=== PATIENT | female | born 1960 | race Caucasian/White ===

== ENCOUNTER 2016-09-07 15:06 | Emergency (ER) | payer BC ==
[~2016-09-07] VITALS: Ht 154.9 cm; Wt 68.9 kg
[~2016-09-07 15:06] MED LIST: HYDROCODONE BIT1 T11 PO; VITAMIN D-32000 UNIT PO
[2016-09-07] MEDS ORDERED: TESSALON PERLE100 M1 PO (16:25)
[2016-09-07] MEDS ORDERED: HYCODAN/HYDROMET5 ML PO (16:25)
== END 2016-09-07 16:36 | disposition home or self-care (01) ==
LOC: ED 15:06
DX: B34.9 Viral infection, unspecified (principal); Z98.51 Tubal ligation status; Z98.890 Other specified postprocedural states; Z79.899 Other long term (current) drug therapy; Z88.6 Allergy status to analgesic agent; Z88.8 Allergy status to other drugs, medicaments and biological substances; Z88.1 Allergy status to other antibiotic agents

== ENCOUNTER 2016-09-15 07:46 | Inpatient (IN) | payer BC ==
[~2016-09-15] VITALS: Ht 154.9 cm; Wt 69.2 kg
--- NOTE | ~2016-09-15 | CON ---
[place], [place] REPORT OF CONSULTATION NAME: DOTTIE ANDERS UNIT #: [id number] ROOM: 406 [facility] [birth year] DOS: 09/16/2016 CARDIOLOGY CONSULTATION HISTORY OF PRESENT ILLNESS: The patient is a 55-year-old female, came in with history of unsteady, did not feel well and a possible non-ST elevation myocardial infarction. Troponin was 0.1 and with normal GFR, so patient also was unsteady, did not feel well and the primary care is Dr. Barkley. The patient has had near syncope, nausea, and vomiting. She felt like the room was spinning when she got up yesterday morning, has some dizziness. The patient had a similar episode about 15 years ago and a history of mitral valve prolapse syndrome. No chest pain. No syncope. No significant dyspnea. PAST SURGICAL HISTORY: History of section, cholecystectomy. PHYSICAL EXAMINATION: VITAL SIGNS: Heart rate is 60, afebrile, blood pressure 144/90, and respiratory rate is 16. GENERAL: Still alert, not in any acute distress. NEUROLOGIC: Mental status good. No focal neurological deficit noted. SKIN: Warm, not diaphoretic. No cyanosis NECK: No jugular venous distention. LUNGS: Clear, no rales heard. HEART: S1, S2. No gallops. ABDOMEN: Soft. Color is good. The patient is on Reglan and Antivert. RECTAL AND GENITAL: Deferred. The patient had a cardiac catheterization. There is no critical coronary artery disease. LABORATORY DATA: Hemoglobin 12.9, WBC count is normal, and GFR is good. Creatinine 0.69, but the troponin initially 0.9 and subsequently 0.102. IMAGING STUDIES: CT scan of the head without contrast was done, no acute intracranial abnormalities noted. A chest x-ray on admission, mild perihilar inflammatory changes, no acute changes noted. No pneumonia, no congestive heart failure. DIAGNOSES: Dizziness, non-ST elevation myocardial infarction may be of consideration. Workup is in progress. Lexiscan Cardiolite is done and pending the scanning. [place], [place] REPORT OF CONSULTATION NAME: DOTTIE ANDERS UNIT #: [id number] ROOM: 406 DOCTOR: [facility]CE [facility] BIRTHDATE: [birth year] MIGUEL REYES MD CM:CONSTR:REPORT OF CONSULTATION 8 09/19/16 0729 interface TA GAO DO
--- NOTE | ~2016-09-15 | ST ---
[place], [place] EXERCISE STRESS TEST REPORT NAME: DOTTIE ANDERS UNIT #: [id number] ROOM: 406 DOCTOR: AMY PEARCE [facility] BIRTHDATE: [birth year] DOS: 09/16/2016 The patient came in with abnormal blood test for cardiovascular abnormality and the angina. The patient received Lexiscan 0.4 mg over 10 seconds. No conclusive electrocardiographic changes noted. Heart rate is 104 and no complications noted. Isotope was injected. Myocardial perfusion scan to follow. MIGUEL REYES MD CM:STRESS:EXERCISE STRESS TEST REPORT [id number] [facility]
[~2016-09-15 07:46] MED LIST changes: +HYCODAN/HYDROMET5 ML PO; +TESSALON PERLE100 M1 PO
[2016-09-15 07:50] VITALS: BP 162/95
[2016-09-15 08:16] LABS: BASO % 0.4 % (0.0-1.0); EOS % 0.7 % (1.0-4.0); HEMATOCRIT 41.1 % (37.0-47.0); HEMOGLOBIN 13.6 g/dl (12.0-16.0); IG # 0.1 10*3/uL (0.0-0.1); LYMPH # 2.1 10*3/uL (1.3-4.4); LYMPH % 37.8 % (27.0-41.0); MEAN CELL VOLUME 92.8 fl (81.0-99.0); MEAN CORPUSCULAR HGB 30.7 pg (27.0-31.0); MEAN CORPUSCULAR HGB CONC 33.1 g/dl (33.0-37.0); MEAN PLATELET VOLUME 9.3 fl (9.6-12.3); MONO # 0.6 10*3/uL (0.1-1.0); MONO % 10.9 % (3.0-9.0); NEUT # 2.8 10*3/uL (2.3-7.9); NEUT % 49.3 % (47.0-73.0); PLATELET COUNT AUTOMATED 331 10*3/uL (130-400); RED BLOOD COUNT 4.43 10*6/uL (4.10-5.10); RED CELL DISTRI WIDTH 12.4 % (0-14.5); WHITE BLOOD COUNT 5.6 10*3/uL (4.8-10.8)
[2016-09-15 08:25] LABS: PROTHROMBIN TIME 10.5 SECONDS (9.0-12.4)
[2016-09-15 08:31] LABS: ALBUMIN 3.5 gm/dl (3.1-4.5); ALKALINE PHOSPHATASE 96 U/L (45-117); BILIRUBIN, TOTAL 0.7 mg/dl (0.2-1.0); BUN 13 mg/dl (7-24); CARBON DIOXIDE 27 mmol/L (21-32); CHLORIDE 111 mmol/L (98-107); CPK 96 U/L (26-192); EST GLOM FILT AFRICAN AMERICAN > 60 ml/min; GLUCOSE 102 mg/dL (65-99); MAGNESIUM 1.8 mg/dL (1.5-2.1); POTASSIUM 3.7 mmol/L (3.5-5.1); SGOT/AST 51 IU/L (3-35); SGPT/ALT 96 U/L (12-78); SODIUM 143 mmol/L (136-145)
[2016-09-15 08:32] LABS: C-REACTIVE PROTEIN < 0.29 MG/DL (0-0.3); CKMB < 0.5 ng/ml (0.5-3.6)
[2016-09-15 08:33] LABS: BILIRUBIN NEGATIVE (NEGATIVE); BLOOD TRACE-INTACT (NEGATIVE); CLARITY CLEAR (CLEAR); COLOR YELLOW (YELLOW); GLUCOSE NEGATIVE (NEGATIVE); KETONE NEGATIVE (NEGATIVE); LEUKO ESTERASE 1+ (NEGATIVE); NITRITE NEGATIVE (NEGATIVE); PH 7.5 (5.0-9.0); PROTEIN NEGATIVE (NEGATIVE); UROBILINOGEN 0.2 E.U./dl (0.2-1.0)
[2016-09-15 08:35] LABS: TROPONIN I 0.089 ng/ml (<0.045)
[2016-09-15 08:44] LABS: RBC 0-2 rbc/hpf (0-2); URINE REFLEX COMMENT YES (NO)
[2016-09-15 10:42] VITALS: BP 153/77
[2016-09-15 11:15] VITALS: BP 120/64
[2016-09-15 16:00] VITALS: BP 128/70
[2016-09-15 20:00] VITALS: BP 144/90
[2016-09-16] VITALS: BP 102/69
[2016-09-16 06:13] LABS: BASO % 0.3 % (0.0-1.0); EOS # 0.1 10*3/uL (0.0-0.4); HEMATOCRIT 39.9 % (37.0-47.0); HEMOGLOBIN 12.9 g/dl (12.0-16.0); LYMPH # 2.5 10*3/uL (1.3-4.4); LYMPH % 42.3 % (27.0-41.0); MEAN CORPUSCULAR HGB 30.1 pg (27.0-31.0); MEAN CORPUSCULAR HGB CONC 32.3 g/dl (33.0-37.0); MEAN PLATELET VOLUME 9.5 fl (9.6-12.3); MONO # 0.7 10*3/uL (0.1-1.0); NEUT # 2.6 10*3/uL (2.3-7.9); NEUT % 43.7 % (47.0-73.0); PLATELET COUNT AUTOMATED 383 10*3/uL (130-400); RED BLOOD COUNT 4.29 10*6/uL (4.10-5.10); RED CELL DISTRI WIDTH 12.6 % (0-14.5)
[2016-09-16 06:21] LABS: ALBUMIN 3.4 gm/dl (3.1-4.5); BILIRUBIN, TOTAL 0.7 mg/dl (0.2-1.0); BUN 9 mg/dl (7-24); CARBON DIOXIDE 26 mmol/L (21-32); CHLORIDE 111 mmol/L (98-107); CHOLESTEROL 160 mg/dL (<200); EST GLOM FILT AFRICAN AMERICAN > 60 ml/min; GLUCOSE 93 mg/dL (65-99); HDL CHOLESTEROL 69 mg/dl (40-60); LDL CHOLESTEROL 69 mg/dL (9-159); POTASSIUM 3.1 mmol/L (3.5-5.1); SGOT/AST 52 IU/L (3-35); SGPT/ALT 87 U/L (12-78); SODIUM 143 mmol/L (136-145); TOTAL PROTEIN 6.7 gm/dL (6.4-8.2); TRIGLYCERIDES 110 mg/dl (<150); VLDL CHOLESTEROL 22 mg/dL (6-40)
[2016-09-16 06:25] LABS: HEMOGLOBIN A1c 5.7 % (4.8-5.6)
[2016-09-16 06:27] LABS: ALKALINE PHOSPHATASE 88 U/L (45-117); FREE T4 1.03 ng/dl (0.76-1.46)
[2016-09-16 06:56] LABS: VITAMIN D, 25-HYDROXY 23.1 ng/mL (30-100)
[2016-09-16 06:57] LABS: FOLIC ACID > 24.00 ng/mL (>5.38)
[2016-09-16 12:00] VITALS: BP 122/68
[2016-09-16 16:00] VITALS: BP 119/67
[2016-09-16 20:00] VITALS: BP 112/61
[2016-09-16 23:57] VITALS: BP 123/64
[2016-09-17 06:40] LABS: BUN 6 mg/dl (7-24); CARBON DIOXIDE 27 mmol/L (21-32); CHLORIDE 112 mmol/L (98-107); EST GLOM FILT AFRICAN AMERICAN > 60 ml/min; GLUCOSE 91 mg/dL (65-99); POTASSIUM 3.5 mmol/L (3.5-5.1); SODIUM 143 mmol/L (136-145)
[2016-09-17 08:00] VITALS: BP 127/82
[2016-09-17] MEDS ORDERED: TESSALON PERLE100 M1 PO (10:28)
[2016-09-17] MEDS ORDERED: D-1000 185 MG-11 TAB PO (10:28)
[2016-09-17] MEDS ORDERED: MECLIZINE HCL25 M2 PO (10:28)
[2016-09-17] MEDS ORDERED: OMEPRAZOLE D/R20 MG PO (10:28)
[2016-09-17] MEDS ORDERED: ASPIRIN ADULT L81 M2 PO (10:28)
[2016-09-17] MEDS ORDERED: METOPROLOL SUCC25 M2 PO (10:28)
[2016-09-17 12:00] VITALS: BP 166/79
== END 2016-09-17 13:47 | disposition home or self-care (01) | DRG 149 ==
LOC: ED 07:46 → EDHOLD 10:15 → 4E 10:15
PROVIDERS: Emergency Medicine; Internal Medicine; Internal Medicine Hospice and Palliative Medicine
PROC: 3E073KZ Introduction of Other Diagnostic Substance into Coronary Artery, Percutaneous Approach (ICD-10-PCS; principal; 2016-09-16)
PROC: 4A02XM4 Measurement of Cardiac Total Activity, External Approach (ICD-10-PCS; principal; 2016-09-16)
DX: R42 Dizziness and giddiness (principal); E83.51 Hypocalcemia; R00.1 Bradycardia, unspecified; R74.0 Nonspecific elevation of levels of transaminase and lactic acid dehydrogenase [LDH]; R73.9 Hyperglycemia, unspecified; E87.6 Hypokalemia; E55.9 Vitamin D deficiency, unspecified; I99.8 Other disorder of circulatory system; R11.2 Nausea with vomiting, unspecified; R26.81 Unsteadiness on feet; I34.0 Nonrheumatic mitral (valve) insufficiency; Z98.51 Tubal ligation status; Z90.49 Acquired absence of other specified parts of digestive tract; Z98.891 History of uterine scar from previous surgery; Z82.49 Family history of ischemic heart disease and other diseases of the circulatory system; Z82.61 Family history of arthritis; Z88.6 Allergy status to analgesic agent; Z79.899 Other long term (current) drug therapy

== ENCOUNTER → 2016-09-22 | Outpatient (CLI) | payer BC ==
[~2016-09-22] MED LIST changes: +ASPIRIN ADULT L81 M2 PO; +D-1000 185 MG-11 TAB PO; +MECLIZINE HCL25 M2 PO; +METOPROLOL SUCC25 M2 PO; +OMEPRAZOLE D/R20 MG PO
== END | disposition home or self-care (01) ==
LOC: RAD 17:18
DX: R42 Dizziness and giddiness (principal); R05 Cough

== ENCOUNTER → 2016-09-24 | Outpatient (CLI) | payer BC | END | disposition home or self-care (01) | LOC: CT 00:56 | DX: R09.89 Other specified symptoms and signs involving the circulatory and respiratory systems (principal); R26.9 Unspecified abnormalities of gait and mobility; R42 Dizziness and giddiness ==

== ENCOUNTER → 2019-01-13 | Outpatient (CLI) | payer OTHER | END | disposition home or self-care (01) | LOC: MAMMO 00:56 | DX: Z12.31 Encounter for screening mammogram for malignant neoplasm of breast (principal) ==

== ENCOUNTER → 2019-03-24 | Outpatient (CLI) | payer OTHER | END | disposition home or self-care (01) | LOC: US 03-23 07:40 | DX: N20.0 Calculus of kidney (principal) ==

== ENCOUNTER → 2019-04-19 | Outpatient (CLI) | payer OTHER | END | disposition home or self-care (01) | LOC: CT 00:41 | DX: N20.0 Calculus of kidney (principal); M54.5 Low back pain; R30.9 Painful micturition, unspecified ==

== ENCOUNTER → 2021-02-14 | Outpatient (CLI) | payer OTHER ==
[~2021-02-14] MED LIST changes: +AVAPRO75 MG PO
== END | disposition home or self-care (01) ==
LOC: CARD
PROVIDERS: ATTEND Physician Assistant
DX: R07.9 Chest pain, unspecified (principal)

== ENCOUNTER → 2021-04-03 | Outpatient (CLI) | payer OTHER | END | disposition home or self-care (01) | LOC: MAMMO 00:27 | PROVIDERS: ATTEND Physician Assistant | DX: Z12.31 Encounter for screening mammogram for malignant neoplasm of breast (principal) ==

== ENCOUNTER → 2021-06-18 | Outpatient (CLI) | payer OTHER ==
[~2021-06-18] MED LIST changes: +ZOFRAN4 MG PO
[2021-06-18 13:50] LABS: BASO # 0.1 10*3/uL (0.0-0.1); BASO % 0.8 % (0.0-1.0); EOS % 0.7 % (1.0-4.0); HEMATOCRIT 46.7 % (37.0-47.0); LYMPH # 1.9 10*3/uL (1.3-4.4); LYMPH % 31.3 % (27.0-41.0); MEAN CELL VOLUME 93.6 fl (81.0-99.0); MEAN CORPUSCULAR HGB 30.7 pg (27.0-31.0); MEAN CORPUSCULAR HGB CONC 32.8 g/dl (33.0-37.0); MEAN PLATELET VOLUME 9.2 fl (9.6-12.3); MONO # 0.6 10*3/uL (0.1-1.0); MONO % 9.2 % (3.0-9.0); NEUT # 3.5 10*3/uL (2.3-7.9); NEUT % 57.8 % (47.0-73.0); PLATELET COUNT AUTOMATED 416 10*3/uL (130-400); RED BLOOD COUNT 4.99 10*6/uL (4.10-5.10); RED CELL DISTRI WIDTH 12.6 % (0-14.5); WHITE BLOOD COUNT 6.1 10*3/uL (4.8-10.8)
[2021-06-18 14:07] LABS: ALBUMIN 3.8 gm/dl (3.1-4.5); ALKALINE PHOSPHATASE 106 U/L (45-117); BUN 12 mg/dl (7-24); CHLORIDE 106 mmol/L (98-107); CREATININE 0.84 mg/dL (0.55-1.02); POTASSIUM 3.6 mmol/L (3.5-5.1); SGOT/AST 23 IU/L (3-35); SGPT/ALT 34 U/L (12-78); SODIUM 141 mmol/L (136-145); TOTAL PROTEIN 8.1 gm/dL (6.4-8.2)
== END ==
LOC: LAB 12:41
PROVIDERS: ATTEND Nurse Practitioner Primary Care
DX: N20.0 Calculus of kidney (principal); R42 Dizziness and giddiness; R00.1 Bradycardia, unspecified

== ENCOUNTER 2021-06-19 06:44 | Emergency (ER) | payer OTHER ==
[~2021-06-19] VITALS: Ht 154.9 cm; Wt 86.2 kg
[~2021-06-19 06:44] MED LIST changes: -ZOFRAN4 MG PO
[2021-06-19 07:17] LABS: BASO % 0.7 % (0.0-1.0); EOS # 0.1 10*3/uL (0.0-0.4); EOS % 1.8 % (1.0-4.0); HEMATOCRIT 44.5 % (37.0-47.0); LYMPH # 2.4 10*3/uL (1.3-4.4); LYMPH % 43.4 % (27.0-41.0); MEAN CELL VOLUME 92.1 fl (81.0-99.0); MEAN CORPUSCULAR HGB 31.1 pg (27.0-31.0); MEAN CORPUSCULAR HGB CONC 33.7 g/dl (33.0-37.0); MEAN PLATELET VOLUME 9.1 fl (9.6-12.3); MONO # 0.5 10*3/uL (0.1-1.0); MONO % 9.6 % (3.0-9.0); NEUT # 2.4 10*3/uL (2.3-7.9); NEUT % 44.1 % (47.0-73.0); PLATELET COUNT AUTOMATED 396 10*3/uL (130-400); RED BLOOD COUNT 4.83 10*6/uL (4.10-5.10); RED CELL DISTRI WIDTH 12.5 % (0-14.5); WHITE BLOOD COUNT 5.4 10*3/uL (4.8-10.8)
[2021-06-19 07:34] LABS: CHLORIDE 107 mmol/L (98-107); POTASSIUM 3.3 mmol/L (3.5-5.1); SODIUM 140 mmol/L (136-145)
[2021-06-19 07:40] LABS: ALBUMIN 3.6 gm/dl (3.1-4.5); ALKALINE PHOSPHATASE 99 U/L (45-117); BUN 11 mg/dl (7-24); CREATININE 0.87 mg/dL (0.55-1.02); SGOT/AST 22 IU/L (3-35); SGPT/ALT 31 U/L (12-78); TOTAL PROTEIN 7.8 gm/dL (6.4-8.2)
[2021-06-19 09:20] LABS: BILIRUBIN Negative (Negative); BLOOD Trace-Lysed (Negative); CLARITY Clear (Clear); COLOR Yellow (Yellow); GLUCOSE Negative (Negative); KETONE Negative (Negative); LEUKO ESTERASE Negative (Negative); NITRITE Negative (Negative); SPECIFIC GRAVITY <= 1.005 (1.001-1.030); UROBILINOGEN 0.2 E.U./dl (0.0-1.0)
[2021-06-19] MEDS ORDERED: ZOFRAN4 MG PO (09:48)
[2021-06-19] MEDS ORDERED: MECLIZINE HCL25 M2 PO (09:48)
== END 2021-06-19 09:56 | disposition home or self-care (01) ==
LOC: ED 06:44
PROVIDERS: Emergency Medicine; Family Medicine
DX: R42 Dizziness and giddiness (principal); Z20.822 Contact with and (suspected) exposure to COVID-19; R31.9 Hematuria, unspecified; Z87.442 Personal history of urinary calculi; Z98.51 Tubal ligation status; Z90.49 Acquired absence of other specified parts of digestive tract; Z98.890 Other specified postprocedural states

== ENCOUNTER → 2021-06-26 | Outpatient (CLI) | payer OTHER ==
[~2021-06-26] MED LIST changes: +ZOFRAN4 MG PO
== END ==
LOC: CT 06-19 00:06
PROVIDERS: ATTEND Nurse Practitioner Primary Care
DX: D17.0 Benign lipomatous neoplasm of skin and subcutaneous tissue of head, face and neck (principal); R22.1 Localized swelling, mass and lump, neck; R00.1 Bradycardia, unspecified; M54.2 Cervicalgia; R42 Dizziness and giddiness; H55.00 Unspecified nystagmus; R00.0 Tachycardia, unspecified

== ENCOUNTER → 2021-07-05 | Outpatient (CLI) | payer OTHER | END | disposition home or self-care (01) | LOC: US 09:12 | PROVIDERS: ATTEND Nurse Practitioner Primary Care | DX: E04.1 Nontoxic single thyroid nodule (principal) ==

== ENCOUNTER → 2021-07-11 | Outpatient (CLI) | payer OTHER ==
[2021-07-11 11:23] LABS: ACT PARTIAL THROMBO TIME 25.6 SECONDS (20.0-32.1)
== END | disposition home or self-care (01) ==
LOC: EDSTATUS 11:00 → SDC 11:00
PROVIDERS: Physician Assistant; ATTEND Nurse Practitioner Primary Care
DX: E04.1 Nontoxic single thyroid nodule (principal); R42 Dizziness and giddiness; R35.0 Frequency of micturition; N20.0 Calculus of kidney; M54.9 Dorsalgia, unspecified; H55.00 Unspecified nystagmus; R00.1 Bradycardia, unspecified; M54.2 Cervicalgia; R22.1 Localized swelling, mass and lump, neck; Z79.01 Long term (current) use of anticoagulants; Z79.899 Other long term (current) drug therapy

== ENCOUNTER → 2021-12-06 | Outpatient (CLI) | payer OTHER | END | disposition home or self-care (01) | LOC: RAD 01:22 | PROVIDERS: ATTEND Nurse Practitioner Women's Health | DX: M85.851 Other specified disorders of bone density and structure, right thigh (principal) ==

== ENCOUNTER → 2022-03-10 | Outpatient (CLI) | payer OTHER | END | disposition home or self-care (01) | LOC: US 02:13 | PROVIDERS: ATTEND Physician Assistant | DX: E04.2 Nontoxic multinodular goiter (principal) ==

== ENCOUNTER → 2022-07-17 | Outpatient (CLI) | payer OTHER | END | disposition home or self-care (01) | LOC: MAMMO 00:18 | PROVIDERS: ATTEND Physician Assistant | DX: Z12.31 Encounter for screening mammogram for malignant neoplasm of breast (principal); N64.9 Disorder of breast, unspecified ==

== ENCOUNTER 2022-08-18 07:38 | Emergency (ER) | payer OTHER ==
[~2022-08-18] VITALS: Ht 154.9 cm; Wt 77.1 kg
[2022-08-18 08:23] LABS: BASO # 0.1 10*3/uL (0.0-0.1); BASO % 0.9 % (0.0-1.0); EOS # 0.1 10*3/uL (0.0-0.4); HEMATOCRIT 46.6 % (37.0-47.0); LYMPH % 37.2 % (27.0-41.0); MEAN CELL VOLUME 93.2 fl (81.0-99.0); MEAN CORPUSCULAR HGB CONC 33.3 g/dl (33.0-37.0); MONO # 0.6 10*3/uL (0.1-1.0); MONO % 10.9 % (3.0-9.0); NEUT # 2.7 10*3/uL (2.3-7.9); NEUT % 48.8 % (47.0-73.0); PLATELET COUNT AUTOMATED 418 10*3/uL (130-400); RED CELL DISTRI WIDTH 12.5 % (0-14.5); WHITE BLOOD COUNT 5.5 10*3/uL (4.8-10.8)
[2022-08-18 08:23] LABS: BILIRUBIN Negative (Negative); BLOOD Trace-Lysed (Negative); CLARITY Clear (Clear); COLOR Yellow (Yellow); GLUCOSE Negative (Negative); KETONE Trace (Negative); LEUKO ESTERASE Negative (Negative); NITRITE Negative (Negative)
[2022-08-18 08:37] LABS: ALKALINE PHOSPHATASE 103 U/L (46-116); BUN 11 mg/dl (9-23); CHLORIDE 103 mmol/L (98-107); LIPASE 41 U/L (12-53); POTASSIUM 3.7 mmol/L (3.4-5.1); SGPT/ALT 26 U/L (10-49); TOTAL PROTEIN 7.7 gm/dL (6.0-8.0)
[2022-08-18 08:44] LABS: BACTERIA 2+; MUCOUS 1+; WBC 0-2 wbc/hpf (0-5)
== END 2022-08-18 11:11 | disposition home or self-care (01) ==
LOC: ED 07:38
PROVIDERS: Emergency Medicine
DX: R10.13 Epigastric pain (principal); M54.6 Pain in thoracic spine; K21.9 Gastro-esophageal reflux disease without esophagitis; I34.1 Nonrheumatic mitral (valve) prolapse; Z98.51 Tubal ligation status; Z90.89 Acquired absence of other organs; Z90.49 Acquired absence of other specified parts of digestive tract; Z98.890 Other specified postprocedural states

== ENCOUNTER → 2022-08-19 | Outpatient (CLI) | payer OTHER | END | disposition home or self-care (01) | LOC: RAD 01:03 | PROVIDERS: ATTEND Physician Assistant | DX: M54.6 Pain in thoracic spine (principal); M54.50 Low back pain, unspecified ==

== ENCOUNTER → 2023-07-02 | Outpatient (CLI) | payer OTHER ==
[~2023-07-02] MED LIST changes: +IOHEXOL 300 MG/ML 100 ML VIAL IV ONE
== END | disposition home or self-care (01) ==
LOC: CT 01:23
PROVIDERS: ATTEND Physician Assistant
DX: K76.0 Fatty (change of) liver, not elsewhere classified (principal); Z90.49 Acquired absence of other specified parts of digestive tract; N20.0 Calculus of kidney

== ENCOUNTER → 2023-09-01 | Outpatient (CLI) | payer OTHER ==
[~2023-09-01] MED LIST changes: -IOHEXOL 300 MG/ML 100 ML VIAL IV ONE
== END | disposition home or self-care (01) ==
LOC: MAMMO 08-24 07:30
PROVIDERS: ATTEND Physician Assistant
DX: Z12.31 Encounter for screening mammogram for malignant neoplasm of breast (principal)

== ENCOUNTER → 2023-12-03 | Outpatient (CLI) | payer OTHER | END | disposition home or self-care (01) | LOC: CARD 00:56 | PROVIDERS: ATTEND Physician Assistant | DX: I08.8 Other rheumatic multiple valve diseases (principal); I49.3 Ventricular premature depolarization; I47.20 Ventricular tachycardia, unspecified; I47.10 Supraventricular tachycardia, unspecified ==

== ENCOUNTER 2024-01-26 18:03 | Emergency (ER) | payer OTHER ==
[~2024-01-26] VITALS: Ht 154.9 cm; Wt 77.1 kg
[2024-01-26] MEDS ORDERED: PREDNISONE20 M1 PO (20:23)
[2024-01-26] MEDS ORDERED: methylPREDNISolone sod succ 125 MG VIAL IM ONE (20:25)
== END 2024-01-26 20:27 | disposition home or self-care (01) ==
LOC: ED 18:03
DX: M25.562 Pain in left knee (principal); K21.9 Gastro-esophageal reflux disease without esophagitis; Z98.51 Tubal ligation status; Z95.5 Presence of coronary angioplasty implant and graft; Z90.49 Acquired absence of other specified parts of digestive tract; Z98.890 Other specified postprocedural states

== ENCOUNTER 2024-01-29 11:51 | Emergency (ER) | payer OTHER ==
[~2024-01-29] VITALS: Ht 154.9 cm; Wt 77.1 kg
[~2024-01-29 11:51] MED LIST changes: +PREDNISONE20 M1 PO
[2024-01-29] MEDS ORDERED: Acetaminophen/Hydrocodone 5 MG/325 MG TABLET PO ONE (12:35)
[2024-01-29] MEDS ORDERED: APIXABAN 5 MG TAB PO ONE (13:35)
[2024-01-29] MEDS ORDERED: ELIQUIS5 M1 PO (13:35)
[2024-01-29] MEDS ORDERED: HYDROCODONE-AC1 EAC1 PO (13:36)
== END 2024-01-29 14:12 | disposition home or self-care (01) ==
LOC: ED 11:51
DX: I82.452 Acute embolism and thrombosis of left peroneal vein (principal); I82.442 Acute embolism and thrombosis of left tibial vein; K21.9 Gastro-esophageal reflux disease without esophagitis; Z90.49 Acquired absence of other specified parts of digestive tract; Z95.5 Presence of coronary angioplasty implant and graft; Z98.51 Tubal ligation status; Z90.89 Acquired absence of other organs; Z98.890 Other specified postprocedural states

== ENCOUNTER → 2024-02-04 | Outpatient (CLI) | payer OTHER ==
[~2024-02-04] MED LIST changes: +ELIQUIS5 M1 PO; +HYDROCODONE-AC1 EAC1 PO
[2024-02-05 14:09] LABS: BETA-2 GLYCOPROTEIN I AB,IGA <9 (0-25); BETA-2 GLYCOPROTEIN I AB,IGG <9 (0-20); BETA-2 GLYCOPROTEIN I AB,IGM <9 (0-32)
[2024-02-05 16:09] LABS: ANTICARDIOLIPIN AB, IGG, QN <9 GPL U/mL (0-14); ANTICARDIOLIPIN AB, IGM, QN <9 MPL U/mL (0-12); CARDIOLIPIN AB IGA <9 APL U/mL (0-11)
== END | disposition home or self-care (01) ==
LOC: LAB 13:07
PROVIDERS: ATTEND Physician Assistant
DX: I82.402 Acute embolism and thrombosis of unspecified deep veins of left lower extremity (principal)

== ENCOUNTER → 2024-02-26 | Outpatient (CLI) | payer OTHER ==
[2024-02-27 17:08] LABS: DVVTMIXRFX CHG (NP); LUPUS DRVVT 55.9 sec (0.0-47.0); PTT-LA 33.7 sec (0.0-43.5)
[2024-02-27 18:08] LABS: LUPUS REFLEX INTERPRETATION Comment: (.)
== END | disposition home or self-care (01) ==
LOC: LAB 01:03 → US 09:30
PROVIDERS: ATTEND Internal Medicine Hematology & Oncology
DX: I82.402 Acute embolism and thrombosis of unspecified deep veins of left lower extremity (principal)

== ENCOUNTER → 2024-07-22 | Outpatient (CLI) | payer OTHER | END | disposition home or self-care (01) | LOC: RAD 07-15 09:00 → LAB 00:25 → RAD 09:00 → LAB 09:00 | PROVIDERS: ATTEND Physician Assistant | DX: M85.88 Other specified disorders of bone density and structure, other site (principal); Z83.49 Family history of other endocrine, nutritional and metabolic diseases ==

== ENCOUNTER → 2024-12-28 | Outpatient (CLI) | payer OTHER | END | disposition home or self-care (01) | LOC: MAMMO 02:16 | PROVIDERS: ATTEND Physician Assistant | DX: Z12.31 Encounter for screening mammogram for malignant neoplasm of breast (principal); R92.323 Mammographic fibroglandular density, bilateral breasts ==